=== PATIENT | male | born 1985 | race American Indian/Alaskan Native ===

== ENCOUNTER 2017-10-24 13:10 | Inpatient (IN) | payer OTHER ==
[2017-10-24 16:07] LABS: Basophils % (Auto) 0.3 % (0.0-1.8); Eosinophils % (Auto) 0.1 % (0.0-4.3); Hematocrit 41.5 % (35.5-45.6); Hemoglobin 13.4 gm/dl (11.8-15.2); Lymphocytes % (Auto) 9.9 % (13.4-35.0); Mean Corpuscular HGB Conc 32 % (32-34); Mean Corpuscular Hemoglobin 30 pg (28-32); Mean Corpuscular Volume 92 fl (84-94); Monocytes # (Auto) 0.7 K/mm3 (0.0-0.8); Monocytes % (Auto) 7.1 % (0.0-7.3); Platelet Count 248 K/mm3 (140-440); Red Blood Count 4.51 M/mm3 (3.65-5.03)
[2017-10-24 16:18] LABS: BUN/Creatinine Ratio 30; Blood Urea Nitrogen 24 mg/dL (9-20); Calcium 9.8 mg/dL (8.4-10.2); Hemolysis Index 133
--- NOTE | 2017-10-24 16:26 | Emergency Department Report ---
ED Chest Pain HPI - General Chief Complaint: Chest Pain Stated Complaint: CHEST PAIN Time Seen by Provider: 10/24/17 16:16 Source: EMS Mode of arrival: Stretcher Limitations: Other - History of Present Illness Initial Comments: This is a 32-year-old male who is an inpatient at [facility]. As far as I can tell this patient may have been evaluated at [facility] for chest pain although the triage note states recently seen at [facility]. In either case he may have had a recent evaluation for chest pain. He is essentially mostly catatonic. He doesn't provide any historical information he doesn't tell me his name. He is here with [facility] staff that tells me that he was complaining of chest pain. The triage note states "patient was complaining of chest pain since October 20, and has not been able to tell anyone, patient was recently seen at [facility]. The attendant doesn't really know anything further about this patient. He arrives with limited information from [facility]. Apparently he was put on a sliding scale for insulin but was never given any. It looks like his sugar never exceeded 100. He is on a variety of psychiatric medicine. I do not know anything further about his cardiac history/ medical history other than there are some labs which accompany the patient these appear to be from October 15 326. I do note that the patient had mildly elevated troponins of 0.069 and 0.062 on October 15 and respectively. - Related Data Allergies Allergy/AdvReac Type Severity Reaction Status Date / Time No Known Allergies Allergy Unverified 10/24/17 15:44 Heart Score - HEART Score History: Slightly suspicious EKG: Non-specific Age: < 45 Risk factors: No known risk factors Troponin: < normal limit HEART Score: 1 - Critical Actions Critical Actions: 0-3 pts:0.9-1.7%risk of adverse cardiac event.Candidate for discharge ED Review of Systems ROS: Stated complaint: CHEST PAIN Other details as noted in HPI Comment: Unobtainable due to pts medical conditions ED Past Medical Hx - Past Medical History Additional medical history: Schizophrenia ED Physical Exam - General Limitations: Other General appearance: other (altered) - Head Head exam: Present: atraumatic, normocephalic - Eye Eye exam: Present: conjunctival injection - ENT ENT exam: Present: mucous membranes moist - Neck Neck exam: Present: normal inspection. Absent: tenderness, meningismus - Respiratory Respiratory exam: Present: normal lung sounds bilaterally. Absent: respiratory distress - Cardiovascular Cardiovascular Exam: Present: regular rate, normal rhythm. Absent: systolic murmur, diastolic murmur, rubs, gallop - GI/Abdominal GI/Abdominal exam: Present: soft, normal bowel sounds. Absent: distended, tenderness, guarding, rebound - Rectal Rectal exam: Present: deferred - Extremities Exam Extremities exam: Present: normal inspection, pedal edema. Absent: calf tenderness - Back Exam Back exam: Present: normal inspection - Neurological Exam Neurological exam: Present: CN II-XII intact (as tested well limited exam). Absent: motor sensory deficit (no deficit obvious) - Psychiatric Psychiatric exam: Present: flat affect, other (somewhat catatonic) - Skin Skin exam: Present: warm, dry, intact, normal color. Absent: rash ED Course Vital Signs 10/24/17 18:30 Temperature 100.3 F H Pulse Rate 112 H Respiratory 26 H Rate Blood Pressure 136/72 [Left] O2 Sat by Pulse 95 Oximetry - Reevaluation(s) Reevaluation #1: Patient's initial EKG obtained in the field showed a heart rate of 1:15. On arrival here his next EKG showed sinus tachycardia at 101. On reexamination I found the patient to have a resting heart rate of 110 and a pulse oximetry of 97 %. He did have an S1 every 3 T3 pattern. He did have a d-dimer of greater than 1400. He is also tachycardic. Therefore it seems that pulmonary embolism is a high probability diagnosis in this apparently sedentary/catatonic patient. He was empirically heparinized. A CTA is pending. I discussed this case initially with Dr. Silva on a preliminary basis. He was not involved in the medical decision making. He stated to admit this patient to the night hospitalist. I am not going to bridge him pending his CTA report just in case he does have some massive pulmonary embolism/pulmonary embolism candidate for intervention. I asked Dr. Unger to follow-up on his CTA results. In any case he will be admitted to the hospital for further evaluation. 10/24/17 19:45 ED Medical Decision Making - Lab Data Result diagrams: 10/24/17 15:59 10/24/17 15:59 Laboratory Results - last 24 hr 10/24/17 10/24/17 15:59 15:59 WBC 10.6 RBC 4.51 Hgb 13.4 Hct 41.5 MCV 92 MCH 30 MCHC 32 RDW 15.0 Plt Count 248 Lymph % (Auto) 9.9 L Boundary % (Auto) 7.1 Eos % (Auto) 0.1 Baso % (Auto) 0.3 Lymph # 1.0 L Boundary # 0.7 Eos # 0.0 Baso # 0.0 Seg Neutrophils % 82.6 H Seg Neutrophils # 8.7 H Sodium 137 Chloride 95.7 L Carbon Dioxide 24 BUN 24 H Creatinine 0.8 Estimated GFR > 60 BUN/Creatinine Ratio 30 Glucose 134 H Calcium 9.8 - EKG Data -: EKG Interpreted by La EKG shows normal: sinus rhythm, axis, intervals, QRS complexes, ST-T waves Rate: tachycardia - EKG Data Interpretation: other - Radiology Data Radiology results: report reviewed (chest x-ray showed no acute process) Critical care attestation.: If time is entered above; I have spent that time in minutes in the direct care of this critically ill patient, excluding procedure time. ED Disposition Clinical Impression: Elevated d-dimer, Prerenal azotemia, Hyperkalemia, Schizophrenia, catatonic Chest pain Qualifiers: Chest pain type: unspecified Qualified Code(s): R07.9 - Chest pain, unspecified Disposition: OP ADMIT IP TO THIS HOSP Is pt being admited?: Yes Does the pt Need Aspirin: Yes Condition: Stable Instructions: Chest Pain (ED) Time of Disposition: 19:49
[2017-10-24] MEDS ORDERED: ASPIRIN PO ONE (16:33)
[2017-10-24 16:59] LABS: INR 0.95 (0.87-1.13)
[2017-10-24 17:00] LABS: Partial Thromboplastin Time 28.9 Sec. (24.2-36.6)
--- NOTE | 2017-10-24 17:00 | XRay Report ---
FINAL REPORT EXAM: XR CHEST 1V AP HISTORY: cp TECHNIQUE: upright single view chest PRIORS: None. FINDINGS: Cardiac and mediastinal contours are unremarkable. No focal pulmonary infiltrate is identified. No pleural fluid collection seen. Pulmonary vasculature is unremarkable. IMPRESSION: Negative single-view chest
[2017-10-24 17:05] LABS: Creatine Kinase MB 2.5 ng/mL (0.0-4.0)
[2017-10-24 17:06] LABS: Alanine Aminotransferase 89 units/L (7-56); Albumin 4.4 g/dL (3.9-5); Bilirubin,Direct 0.4 mg/dL (0-0.2)
[2017-10-24] MEDS ORDERED: HEPARIN 10,000 UNITS/10 ML IV ONE (18:57)
[2017-10-24 19:39] LABS: Bilirubin,Urine NEG (Negative); Blood,Urine NEG (Negative); Color,Urine Yellow (Yellow); Mucus,Urine 1+ /HPF
[2017-10-24] MEDS ORDERED: NACL 0.9% 1000 ML 1,000 ML IV ONE (19:43)
[2017-10-24 19:48] LABS: Amphetamine Screen,Urine PRESUMPTIVE NEGATIVE; Benzodiazepines Screen,Urine PRESUMPTIVE NEGATIVE; Cannabinoid Screen,Urine PRESUMPTIVE NEGATIVE; Cocaine Screen,Urine PRESUMPTIVE NEGATIVE; Methadone Screen,Urine PRESUMPTIVE NEGATIVE; Opiate Screen,Urine PRESUMPTIVE NEGATIVE
--- NOTE | 2017-10-24 22:11 | Cat Scan Report ---
FINAL REPORT EXAM: CT ANGIO CHEST HISTORY: cp elevated dimer TECHNIQUE: CT chest CT angiogram with intravenous contrast and maximum intensity and multiplanar reconstruction is PRIORS: None. FINDINGS: There are filling defects present within right lower lobe segmental and subsegmental branches. These appear nonocclusive. There is wedge-shaped right lower lobe pulmonary infiltrate which likely reflects infarct in atelectasis there is a small right pleural effusion present. No evidence of mediastinal pathologic lymph node enlargement Heart and great vessels are unremarkable. The aorta is normal in caliber. No focal pulmonary infiltrate identified. No pleural fluid collection seen. No acute pulmonary abnormality noted. Visualized portion of the upper abdomen demonstrates no acute change. IMPRESSION: Findings are positive for a pulmonary emboli within right lower lobe segmental and subsegmental branches. These are likely acute or subacute. Overall clot burden is small Right lower lobe infiltrate/atelectasis likely reflecting pulmonary infarct Small right pleural effusion
--- NOTE | 2017-10-24 22:12 | Cat Scan Report ---
FINAL REPORT EXAM: CT HEAD/BRAIN WO CON HISTORY: AMS TECHNIQUE: CT head without contrast PRIORS: None. FINDINGS: No acute intra-axial or extra-axial hemorrhage is identified. There is no evidence of midline shift or mass effect. The ventricles and sulci are within normal limits. Forte-white matter differentiation is intact. No acute parenchymal abnormalities seen. Bony calvarium is grossly intact. Visualized portions of the mastoids and paranasal sinuses are unremarkable. IMPRESSION: Negative CT head
[2017-10-24] MEDS ORDERED: SODIUM CHLORIDE FLUSH SYRINGE 10 ML IV PRN (22:58)
[2017-10-24] MEDS ORDERED: TYLENOL PO PRN (22:58)
[2017-10-24] MEDS ORDERED: ZOFRAN IV PRN (22:58)
[2017-10-24] MEDS ORDERED: ROCEPHIN/NS 1 GM/50 ML 1 GM/50 ML BAG IV SCH (23:00)
--- NOTE | 2017-10-24 23:04 | History and Physical Report ---
History of Present Illness Date of examination: 10/24/17 History of present illness: 32- year-old man with a history of schizophrenia cost emergency room complaints of right-sided chest pain. Patient is catatonic, very difficult to get history from him, review of systems is unobtainable PAST MEDICAL HISTORY: Schizophrenia PAST SURGICAL HISTORY: Unknown SOCIAL HISTORY: Unknown FAMILY HISTORY: Unknown Medications and Allergies Allergies Allergy/AdvReac Type Severity Reaction Status Date / Time No Known Allergies Allergy Unverified 10/24/17 15:44 Home Medications Medication Instructions Recorded Confirmed Last Taken Type Apixaban [Eliquis] 5 mg PO BID #60 tablet 10/30/17 Unknown Rx Active Meds: Active Medications Heparin Sodium/Sodium Chloride (Heparin/ 0.45% Nacl-25,000 Unit/500 Ml) 25,000 unit in 500 mls @ 24 mls/hr IV TITR GINGER; Protocol Exam - Physical Exam Narrative exam: Gen. appearance: Patient lying in bed, no apparent distress HEENT: Normocephalic, atraumatic, pupils equally round and reactive to light, extraocular movement intact, and no sclericterus,. No JVD or thyromegaly or nodule,neck supple, no carotid bruit ,mucous membranes moist, no exudate or erythema Heart: S1, S2, regular rate and rhythm Lungs: Difficult to assess Abdomen: Positive bowel sounds, nontender, nondistended, no organomegaly Extremity: No edema, cyanosis, clubbing Skin: No rash, nodules, warm, dry Neuro: lethargic but arousable - Constitutional Vitals: Temp Pulse Resp BP Pulse Ox 100.3 F H 105 H 31 H 146/69 96 10/24/17 18:30 10/24/17 22:30 10/24/17 22:30 10/24/17 22:30 10/24/17 22:30 Results - Labs CBC & Chem 7: 10/30/17 05:33 10/27/17 07:57 Labs: Abnormal lab results 10/24/17 10/24/17 10/24/17 Range/Units 15:59 15:59 16:40 Lymph % (Auto) 9.9 L (13.4-35.0) % Lymph # 1.0 L (1.2-5.4) K/mm3 Seg Neutrophils % 82.6 H (40.0-70.0) % Seg Neutrophils # 8.7 H (1.8-7.7) K/mm3 D-Dimer (0-234) ng/mlDDU Potassium 5.1 H (3.6-5.0) mmol/L Chloride 95.7 L (98-107) mmol/L BUN 24 H (9-20) mg/dL Glucose 134 H (75-100) mg/dL Direct Bilirubin (0-0.2) mg/dL AST (5-40) units/L ALT (7-56) units/L Total Creatine Kinase 589 H (55-170) units/L 10/24/17 10/24/17 Range/Units 16:40 16:40 Lymph % (Auto) (13.4-35.0) % Lymph # (1.2-5.4) K/mm3 Seg Neutrophils % (40.0-70.0) % Seg Neutrophils # (1.8-7.7) K/mm3 D-Dimer 1408.23 H (0-234) ng/mlDDU Potassium (3.6-5.0) mmol/L Chloride (98-107) mmol/L BUN (9-20) mg/dL Glucose (75-100) mg/dL Direct Bilirubin 0.4 H (0-0.2) mg/dL AST 83 H (5-40) units/L ALT 89 H (7-56) units/L Total Creatine Kinase (55-170) units/L - Imaging and Cardiology EKG: image reviewed Chest x-ray: image reviewed CT scan - chest: report reviewed CT Scan - head: report reviewed Assessment and Plan Assessment Pulmonary emboli Community-acquired pneumonia schizophrenia Plan Admit to medicine Start heparin drip, monitor hemoglobin Start IV Rocephin, azithromycin Follow blood cultures, check Doppler lower extremity DVT prophylaxis
[2017-10-24] MEDS: cefTRIAXone 1 GM in NACL 0.9% 20 ML IV SCH (23:55)
[2017-10-25] MEDS: HEPARIN/ 0.45% NACL-25,000 UNIT/500 ML 25,000 UNIT/500 ML BAG IV SCH ×2 (00:18→22:05)
[2017-10-25] MEDS: ZITHROMAX 500 MG in NACL 0.9% 250ML 250 ML IV SCH (04:50)
[2017-10-25 06:08] LABS: Basophils % (Auto) 0.5 % (0.0-1.8); Eosinophils % (Auto) 0.4 % (0.0-4.3); Lymphocytes # (Auto) 1.7 K/mm3 (1.2-5.4); Lymphocytes % (Auto) 20.8 % (13.4-35.0); Mean Corpuscular HGB Conc 33 % (32-34); Mean Corpuscular Hemoglobin 30 pg (28-32); Mean Corpuscular Volume 91 fl (84-94); Monocytes # (Auto) 0.7 K/mm3 (0.0-0.8); Monocytes % (Auto) 8.9 % (0.0-7.3); Platelet Count 247 K/mm3 (140-440); Red Blood Count 3.96 M/mm3 (3.65-5.03); Red Cell Distribution Width 14.7 % (13.2-15.2)
[2017-10-25 06:31] LABS: BUN/Creatinine Ratio 29; Blood Urea Nitrogen 23 mg/dL (9-20); Calcium 9.4 mg/dL (8.4-10.2); Hemolysis Index 0
[2017-10-25] MEDS: SODIUM CHLORIDE FLUSH SYRINGE 10 ML IV SCH ×2 (14:19→22:04)
--- NOTE | 2017-10-25 17:15 | Progress Note ---
Assessment and Plan - Patient Problems (1) Schizophrenia, catatonic Current Visit: Yes Status: Acute Plan to address problem: Still catatonic.Not talking.Quite.Making ete contact (2) Pulmonary embolism Current Visit: Yes Status: Acute Qualifiers: Chronicity: acute Acute cor pulmonale presence: without acute cor pulmonale Plan to address problem: Cont Heparin (3) DVT prophylaxis Current Visit: Yes Status: Acute Plan to address problem: On Heparin drip Subjective Date of service: 10/25/17 Principal diagnosis: Acute PE/Catatonic schizophrenia Interval history: Still in catatonic state Objective - Constitutional Vitals: Vital Signs - 12hr 10/25/17 10/25/17 10/25/17 07:52 10:00 12:13 Temperature 98.8 F 98.5 F Pulse Rate 74 84 Respiratory 20 16 20 Rate Blood Pressure 129/64 133/75 O2 Sat by Pulse 96 98 98 Oximetry 10/25/17 10/25/17 16:42 17:02 Temperature 98.9 F Pulse Rate 98 H Respiratory 18 Rate Blood Pressure 137/76 O2 Sat by Pulse 95 93 Oximetry General appearance: Present: no acute distress, well-nourished - EENT Eyes: PERRL, EOM intact ENT: hearing intact, clear oral mucosa Ears: bilateral: normal - Neck Neck: supple, normal ROM - Respiratory Respiratory effort: normal Respiratory: bilateral: CTA - Breasts Breasts: normal - Cardiovascular Heart rate: 80 Rhythm: regular Heart Sounds: Present: S1 & S2. Absent: gallop, rub Extremities: no ischemia, pulses intact, No edema, normal color, Full ROM - Gastrointestinal General gastrointestinal: Present: soft, non-tender, non-distended, normal bowel sounds Rectal Exam: deferred - Genitourinary Male genitourinary: normal - Integumentary Integumentary: clear, warm, dry - Musculoskeletal Musculoskeletal: 1, strength equal bilaterally - Neurologic Neurologic: moves all extremities - Psychiatric Psychiatric: memory intact, appropriate mood/affect, intact judgment & insight - Labs CBC & Chem 7: 18 05:33 10/27/17 07:57 Labs: Abnormal lab results 10/25/17 10/25/17 10/25/17 Range/Units 04:33 04:33 06:15 Carson % (Auto) 8.9 H (0.0-7.3) % Heparin Anti-Xa Level 0.12 L (0.3-0.7) U.I./ml BUN 23 H (9-20) mg/dL Glucose 108 H (75-100) mg/dL
--- NOTE | 2017-10-25 17:48 | Vascular Lab Report ---
LOWER EXTREMITY VENOUS DUPLEX: REASON FOR EXAM: Deep venous thrombosis. COMMENTS ON THE RIGHT: All veins visualized are freely compressible without evidence of internal echogenicity. Flow is spontaneous and phasic throughout. COMMENTS ON THE LEFT: All veins visualized are freely compressible without evidence of internal echogenicity. Flow is spontaneous and phasic throughout. IMPRESSION: No evidence of acute or chronic deep venous thrombosis in either lower extremity.
[2017-10-25] MEDS: cefTRIAXone 1 GM in NACL 0.9% 20 ML IV SCH (22:03)
[2017-10-26] MEDS: HEPARIN/ 0.45% NACL-25,000 UNIT/500 ML 25,000 UNIT/500 ML BAG IV SCH (00:03)
[2017-10-26] MEDS: ZITHROMAX 500 MG in NACL 0.9% 250ML 250 ML IV SCH (03:26)
[2017-10-26 08:07] LABS: Hemoglobin 11.7 gm/dl (11.8-15.2)
[2017-10-26] MEDS: SODIUM CHLORIDE FLUSH SYRINGE 10 ML IV SCH ×2 (12:21→22:28)
--- NOTE | 2017-10-26 17:56 | Progress Note ---
Assessment and Plan - Patient Problems (1) Pulmonary embolism Current Visit: Yes Status: Acute Qualifiers: Chronicity: acute Acute cor pulmonale presence: without acute cor pulmonale Plan to address problem: Cont IV Heparin. consult pending (2) Schizophrenia, catatonic Current Visit: Yes Status: Acute Plan to address problem: Improved (3) Pneumonia Current Visit: Yes Status: Acute Qualifiers: Pneumonia type: due to unspecified organism Lung location: unspecified part of lung Plan to address problem: Cont Abx (4) DVT prophylaxis Current Visit: Yes Status: Acute Plan to address problem: On IV Heparin Subjective Date of service: 10/26/17 Principal diagnosis: Acute PE PNA and Catatonic state Interval history: Catatonic state improved Objective - Constitutional Vitals: Vital Signs - 12hr 10/26/17 10/26/17 10/26/17 08:00 08:27 09:50 Temperature 98.5 F Pulse Rate 101 H 92 H Respiratory 8 L Rate Blood Pressure 136/79 O2 Sat by Pulse 97 97 Oximetry 10/26/17 10/26/17 10/26/17 12:03 16:00 16:03 Temperature 98.5 F 98.2 F Pulse Rate 105 H 109 H 88 Respiratory 18 18 Rate Blood Pressure 154/84 143/81 O2 Sat by Pulse 97 96 Oximetry General appearance: Present: no acute distress, well-nourished - EENT Eyes: PERRL, EOM intact ENT: hearing intact, clear oral mucosa Ears: bilateral: normal - Neck Neck: supple, normal ROM - Respiratory Respiratory effort: normal Respiratory: bilateral: CTA - Breasts Breasts: normal - Cardiovascular Heart rate: 76 Rhythm: regular Heart Sounds: Present: S1 & S2. Absent: gallop, rub Extremities: no ischemia, pulses intact, No edema, normal color, Full ROM - Gastrointestinal General gastrointestinal: Present: soft, non-tender, non-distended, normal bowel sounds - Genitourinary Male genitourinary: normal - Integumentary Integumentary: clear, warm, dry - Musculoskeletal Musculoskeletal: 1, strength equal bilaterally - Neurologic Neurologic: moves all extremities - Psychiatric Psychiatric: memory intact, appropriate mood/affect, intact judgment & insight - Allied health notes Allied health notes reviewed: nursing, case management - Labs CBC & Chem 7: 10/30/17 05:33 10/27/17 07:57 Labs: Abnormal lab results 10/25/17 10/26/17 10/26/17 Range/Units 23:18 07:40 07:40 Hgb 11.7 L (11.8-15.2) gm/dl Hct 35.0 L (35.5-45.6) % Heparin Anti-Xa Level 0.13 L > 2.00 H (0.3-0.7) U.I./ml 10/26/17 Range/Units 17:02 Hgb (11.8-15.2) gm/dl Hct (35.5-45.6) % Heparin Anti-Xa Level < 0.10 L (0.3-0.7) U.I./ml
[2017-10-26] MEDS: cefTRIAXone 1 GM in NACL 0.9% 20 ML IV SCH (22:27)
[2017-10-27] MEDS ORDERED: HEPARIN 10,000 UNITS/10 ML IV ONE (03:44)
[2017-10-27] MEDS: HEPARIN/ 0.45% NACL-25,000 UNIT/500 ML 25,000 UNIT/500 ML BAG IV SCH (04:20)
[2017-10-27 08:30] LABS: Basophils # (Auto) 0.1 K/mm3 (0.0-0.1); Basophils % (Auto) 0.7 % (0.0-1.8); Eosinophils # (Auto) 0.1 K/mm3 (0.0-0.4); Eosinophils % (Auto) 1.5 % (0.0-4.3); Hematocrit 35.9 % (35.5-45.6); Hemoglobin 12.1 gm/dl (11.8-15.2); Lymphocytes # (Auto) 1.7 K/mm3 (1.2-5.4); Lymphocytes % (Auto) 24.4 % (13.4-35.0); Mean Corpuscular HGB Conc 34 % (32-34); Mean Corpuscular Hemoglobin 30 pg (28-32); Mean Corpuscular Volume 90 fl (84-94); Monocytes # (Auto) 0.6 K/mm3 (0.0-0.8); Monocytes % (Auto) 8.3 % (0.0-7.3); Platelet Count 287 K/mm3 (140-440); Red Cell Distribution Width 14.4 % (13.2-15.2)
[2017-10-27 08:42] LABS: BUN/Creatinine Ratio 24; Blood Urea Nitrogen 17 mg/dL (9-20); Calcium 9.8 mg/dL (8.4-10.2); Hemolysis Index 7
[2017-10-27] MEDS: SODIUM CHLORIDE FLUSH SYRINGE 10 ML IV SCH ×2 (10:53→22:42)
[2017-10-27] MEDS: ZITHROMAX PO SCH (13:43)
--- NOTE | 2017-10-27 16:19 | Progress Note ---
Assessment and Plan - Patient Problems (1) Pulmonary embolism Current Visit: Yes Status: Acute Qualifiers: Chronicity: acute Acute cor pulmonale presence: without acute cor pulmonale Plan to address problem: Cont Heparin.Chayo from tomorrow consult pending (2) Schizophrenia, catatonic Current Visit: Yes Status: Acute Plan to address problem: Improved (3) Pneumonia Current Visit: Yes Status: Acute Qualifiers: Pneumonia type: due to unspecified organism Lung location: unspecified part of lung Plan to address problem: Cont Abx (4) DVT prophylaxis Current Visit: Yes Status: Acute Plan to address problem: On IV Heparin Subjective Date of service: 10/27/17 Principal diagnosis: Acute PE /PNA /Catatonic state Interval history: Catatonic state improved Objective - Constitutional Vitals: Vital Signs - 12hr 10/27/17 10/27/17 10/27/17 07:05 13:14 16:09 Temperature 99.4 F 99.3 F Pulse Rate 85 93 H Respiratory 18 20 Rate Blood Pressure 138/76 Blood Pressure 141/84 [Left] O2 Sat by Pulse 95 96 Oximetry 10/27/17 16:10 Temperature Pulse Rate 92 H Respiratory 20 Rate Blood Pressure Blood Pressure 145/89 [Left] O2 Sat by Pulse 96 Oximetry General appearance: Present: no acute distress, well-nourished - EENT Eyes: PERRL, EOM intact ENT: hearing intact, clear oral mucosa Ears: bilateral: normal - Neck Neck: supple, normal ROM - Respiratory Respiratory effort: normal Respiratory: bilateral: CTA - Breasts Breasts: normal - Cardiovascular Heart rate: 76 Rhythm: regular Heart Sounds: Present: S1 & S2. Absent: gallop, rub Extremities: no ischemia, pulses intact, No edema, normal color, Full ROM - Gastrointestinal General gastrointestinal: Present: soft, non-tender, non-distended, normal bowel sounds - Genitourinary Male genitourinary: normal - Integumentary Integumentary: clear, warm, dry - Musculoskeletal Musculoskeletal: 1, strength equal bilaterally - Neurologic Neurologic: moves all extremities - Psychiatric Psychiatric: memory intact, appropriate mood/affect, intact judgment & insight - Allied health notes Allied health notes reviewed: nursing, case management - Labs CBC & Chem 7: 10/30/17 05:33 10/27/17 07:57 Labs: Abnormal lab results 10/26/17 10/27/17 10/27/17 Range/Units 17:02 00:39 07:57 [place]er % (Auto) 8.3 H (0.0-7.3) % Heparin Anti-Xa Level < 0.10 L < 0.10 L (0.3-0.7) U.I./ml Creatinine (0.8-1.5) mg/dL Glucose (75-100) mg/dL 10/27/17 Range/Units 07:57 Towner % (Auto) (0.0-7.3) % Heparin Anti-Xa Level (0.3-0.7) U.I./ml Creatinine 0.7 L (0.8-1.5) mg/dL Glucose 110 H (75-100) mg/dL
[2017-10-27] MEDS: cefTRIAXone 1 GM in NACL 0.9% 20 ML IV SCH (22:41)
[2017-10-28] MEDS: HEPARIN/ 0.45% NACL-25,000 UNIT/500 ML 25,000 UNIT/500 ML BAG IV SCH ×2 (03:57→16:38)
[2017-10-28 07:08] LABS: Hematocrit 38.8 % (35.5-45.6); Hemoglobin 12.2 gm/dl (11.8-15.2)
[2017-10-28] MEDS: SODIUM CHLORIDE FLUSH SYRINGE 10 ML IV SCH ×2 (10:43→22:45)
[2017-10-28] MEDS: ZITHROMAX PO SCH (10:43)
--- NOTE | 2017-10-28 20:20 | Progress Note ---
Assessment and Plan - Patient Problems (1) Pulmonary embolism Current Visit: Yes Status: Acute Qualifiers: Chronicity: acute Acute cor pulmonale presence: without acute cor pulmonale Plan to address problem: Heparin d/c'd today.On Eliquis 10mg po bid.Patient to be discharged on Eliquis 10 mg po bid till November 05 and then on 5mg po Bid for atleast 9 to 12 months (2) Schizophrenia, catatonic Current Visit: Yes Status: Acute Plan to address problem: Improved (3) Pneumonia Current Visit: Yes Status: Acute Qualifiers: Pneumonia type: due to unspecified organism Lung location: unspecified part of lung Plan to address problem: Cont Abx (4) DVT prophylaxis Current Visit: Yes Status: Acute Plan to address problem: On Eliquis Subjective Date of service: 10/28/17 Principal diagnosis: Acute PE/PNA/Catatonic state Interval history: Catatonic state improved Objective - Constitutional Vitals: Vital Signs - 12hr 10/28/17 10/28/17 10/28/17 11:59 12:00 15:55 Temperature 98.8 F 98.6 F Pulse Rate 100 H 95 H 97 H Respiratory 20 20 Rate Blood Pressure 151/87 145/83 O2 Sat by Pulse 96 93 Oximetry General appearance: Present: no acute distress, well-nourished - EENT Eyes: PERRL, EOM intact ENT: hearing intact, clear oral mucosa Ears: bilateral: normal - Neck Neck: supple, normal ROM - Respiratory Respiratory effort: normal Respiratory: bilateral: CTA - Breasts Breasts: normal - Cardiovascular Heart rate: 78 Rhythm: regular Heart Sounds: Present: S1 & S2. Absent: gallop, rub Extremities: no ischemia, pulses intact, No edema, normal color, Full ROM - Gastrointestinal General gastrointestinal: Present: soft, non-tender, non-distended, normal bowel sounds - Genitourinary Male genitourinary: normal - Integumentary Integumentary: clear, warm, dry - Musculoskeletal Musculoskeletal: 1, strength equal bilaterally - Neurologic Neurologic: moves all extremities - Psychiatric Psychiatric: memory intact, appropriate mood/affect, intact judgment & insight - Labs CBC & Chem 7: 10/30/17 05:33 10/27/17 07:57 Labs: Abnormal lab results 10/28/17 Range/Units 06:16 Heparin Anti-Xa Level 0.14 L (0.3-0.7) U.I./ml
[2017-10-28] MEDS: cefTRIAXone 1 GM in NACL 0.9% 20 ML IV SCH (22:44)
[2017-10-29] MEDS: HEPARIN/ 0.45% NACL-25,000 UNIT/500 ML 25,000 UNIT/500 ML BAG IV SCH (06:06)
[2017-10-29] MEDS: ZITHROMAX PO SCH (11:22)
[2017-10-29] MEDS: SODIUM CHLORIDE FLUSH SYRINGE 10 ML IV SCH ×2 (11:23→22:21)
--- NOTE | 2017-10-29 14:06 | Progress Note ---
Assessment and Plan - Patient Problems (1) Pulmonary embolism Current Visit: Yes Status: Acute Qualifiers: Chronicity: acute Acute cor pulmonale presence: without acute cor pulmonale Plan to address problem: Heparin d/c'd .On Eliquis 10mg po bid.Patient to be discharged on Eliquis 10 mg po bid till November 05 and then on 5mg po Bid for atleast 9 to 12 months (2) Schizophrenia, catatonic Current Visit: Yes Status: Acute Plan to address problem: Improved (3) Pneumonia Current Visit: Yes Status: Acute Qualifiers: Pneumonia type: due to unspecified organism Lung location: unspecified part of lung Plan to address problem: Cont Abx (4) DVT prophylaxis Current Visit: Yes Status: Acute Plan to address problem: On Eliquis Subjective Date of service: 10/29/17 Principal diagnosis: Acute PE Schizophrenia and Pneumonia Interval history: Catatonic state improved Objective - Constitutional Vitals: Vital Signs - 12hr 10/29/17 10/29/17 10/29/17 04:36 08:26 12:00 Temperature 99.4 F 98.0 F 98.4 F Pulse Rate 100 H 93 H 101 H Respiratory 20 20 20 Rate Blood Pressure 133/89 130/69 139/70 O2 Sat by Pulse 95 94 92 Oximetry General appearance: Present: no acute distress, well-nourished - EENT Eyes: PERRL, EOM intact ENT: hearing intact, clear oral mucosa Ears: bilateral: normal - Neck Neck: supple, normal ROM - Respiratory Respiratory effort: normal Respiratory: bilateral: CTA - Breasts Breasts: normal - Cardiovascular Heart rate: 80 Rhythm: regular Heart Sounds: Present: S1 & S2. Absent: gallop, rub Extremities: no ischemia, pulses intact, No edema, normal color, Full ROM - Gastrointestinal General gastrointestinal: Present: soft, non-tender, non-distended, normal bowel sounds - Genitourinary Male genitourinary: normal - Integumentary Integumentary: clear, warm, dry - Musculoskeletal Musculoskeletal: 1, strength equal bilaterally - Neurologic Neurologic: moves all extremities - Psychiatric Psychiatric: memory intact, appropriate mood/affect, intact judgment & insight - Labs CBC & Chem 7: 10/30/17 05:33 10/27/17 07:57
--- NOTE | 2017-10-29 14:30 | Event Note ---
Date: 10/29/17 Patient is stable for discharge if mental health clearance. Patient on Eliquis Can be discharged on Eliquis Mental health can call me at [phone] to discuss the case with me Dr. Elena
[2017-10-29] MEDS: ELIQUIS PO SCH ×2 (19:30→22:22)
[2017-10-29] MEDS: cefTRIAXone 1 GM in NACL 0.9% 20 ML IV SCH (22:21)
[2017-10-30 05:50] LABS: Hematocrit 39.5 % (35.5-45.6); Hemoglobin 13.2 gm/dl (11.8-15.2)
[2017-10-30] MEDS: ELIQUIS PO SCH ×2 (12:02→21:52)
[2017-10-30] MEDS: ZITHROMAX PO SCH (12:02)
[2017-10-30] MEDS: SODIUM CHLORIDE FLUSH SYRINGE 10 ML IV SCH ×2 (12:03→21:58)
--- NOTE | 2017-10-30 16:41 | Progress Note ---
Assessment and Plan - Patient Problems (1) Pulmonary embolism Current Visit: Yes Status: Acute Qualifiers: Chronicity: acute Acute cor pulmonale presence: without acute cor pulmonale Plan to address problem: Heparin d/c'd .On Eliquis 10mg po bid.Patient to be discharged on Eliquis 10 mg po bid till November 05 and then on 5mg po Bid for atleast 9 to 12 months (2) Schizophrenia, catatonic Current Visit: Yes Status: Acute Plan to address problem: Improved.Near baseline. (3) Pneumonia Current Visit: Yes Status: Acute Qualifiers: Pneumonia type: due to unspecified organism Lung location: unspecified part of lung Plan to address problem: Antibiocs being d/c'd (4) DVT prophylaxis Current Visit: Yes Status: Acute Plan to address problem: On Eliquis (5) Discharge planning issues Current Visit: Yes Status: Acute Plan to address problem: Patient cleared by to go back to nursing home today. Father to pick him up in AM Subjective Date of service: 10/30/17 Principal diagnosis: Acute PE Catatonic state schizophrenia Pneumonia Interval history: Catatonic state improved Objective - Constitutional Vitals: Vital Signs - 12hr 10/30/17 10/30/17 08:54 12:27 Temperature 98.6 F 98.6 F Pulse Rate 79 Respiratory 20 20 Rate Blood Pressure 127/68 149/86 O2 Sat by Pulse 95 Oximetry General appearance: Present: no acute distress, well-nourished - EENT Eyes: PERRL, EOM intact ENT: hearing intact, clear oral mucosa Ears: bilateral: normal - Neck Neck: supple, normal ROM - Respiratory Respiratory effort: normal Respiratory: bilateral: CTA - Breasts Breasts: normal - Cardiovascular Heart rate: 78 Rhythm: regular Heart Sounds: Present: S1 & S2. Absent: gallop, rub Extremities: no ischemia, pulses intact, pulses symmetrical, No edema, normal color, Full ROM - Gastrointestinal General gastrointestinal: Present: soft, non-tender, non-distended, normal bowel sounds Rectal Exam: deferred - Genitourinary Male genitourinary: normal - Integumentary Integumentary: clear, warm, dry - Musculoskeletal Musculoskeletal: 1, strength equal bilaterally - Neurologic Neurologic: moves all extremities - Psychiatric Psychiatric: memory intact, appropriate mood/affect, intact judgment & insight - Allied health notes Allied health notes reviewed: nursing, case management - Labs CBC & Chem 7: 10/30/17 05:33 10/27/17 07:57
--- NOTE | 2017-10-30 16:42 | Discharge Summary ---
Providers - Providers Date of Admission: 10/24/17 22:58 Date of discharge: 10/31/17 Attending physician: JOSÉ SCOTT 10/30/17 09:45 Consult to Mental Health [CONS] Urgent Reason For Exam: Patient from [facility], medically stable Place consult to:: Mental Health Notified:: Colette Phone number called:: [phone] Was contact made?: Yes If yes, spoke with:: Colette Primary care physician: CARLENE THOMASON Hospitalization Condition: Stable Hospital course: The SW spoke to the PT's father regarding the Pt's d/c plan. The Pt's father states the Pt is coming from [facility] and will return to [facility] when medical stable. The PT has been a resident a critical access hospital for 2.5 years. The SW spoke to [facility] at [phone] option 2 regarding the return to [address] [place] [id number] at d/c. The SW is requested to fax over the d/c paperwork [phone] NOK: The PT's father [phone] D/C: The PT will be d/c back to [facility] Initialized on 10/30/17 15:36 - END OF NOTE consult on 10/30/17 Pt is a 32 yo AA male; he was seen today and appears stable mentally. He reports a history of schizophrenia of which he's prescribed Depakote; he reports that he's compliant with his meds. According to all reports, pt was transferred to [facility] on October 20 due to Catatonia; pt reports that he'd had a bad reaction to Prazosin that Dr. Gamble at [facility] had prescribed for him. This pt presented in the ER in a Catatonic state; today, he is lucid. Pt does report weakness in his legs and that he has not been able to go to the restroom on his own and he's not sure if he can bath himself but he denies SI, HI and the voices are not active currently. Pt does not meet IP criteria and should not be on a 1013; he can discharge once medically cleared. SDM Patient had Acute PE for wqhich he was on Heparin IV and now on Eliquis 10 bid till and then on 5 bid Also had Pneumonia which was treated.Abx discontinued today Catatonic schizophrenia improved Disposition: [id number] ANOTHER TYPE [facility]ARE Core Measure Documentation - Palliative Care Palliative Care/ Comfort Measures: Not Applicable - Core Measures Any of the following diagnoses?: none Exam - Constitutional Vitals: Temp Pulse Resp BP Pulse Ox 98.6 F 79 20 149/86 95 10/30/17 12:27 10/30/17 08:54 10/30/17 12:27 10/30/17 12:27 10/30/17 08:54 General appearance: Present: no acute distress, well-nourished - EENT Eyes: Present: PERRL ENT: hearing intact, clear oral mucosa - Neck Neck: Present: supple, normal ROM - Respiratory Respiratory effort: normal Respiratory: bilateral: CTA - Cardiovascular Heart rate: 80 Rhythm: regular Heart Sounds: Present: S1 & S2. Absent: rub, click - Extremities Extremities: pulses symmetrical, No edema Peripheral Pulses: within normal limits - Abdominal General gastrointestinal: Present: soft, non-tender, non-distended, normal bowel sounds Male genitourinary: Present: normal - Rectal Rectal Exam: deferred - Integumentary Integumentary: Present: clear, warm, dry - Musculoskeletal Musculoskeletal: gait normal, strength equal bilaterally - Psychiatric Psychiatric: appropriate mood/affect, intact judgment & insight - Neurologic Neurologic: CNII-XII intact, moves all extremities - Allied Health Allied health notes reviewed: nursing, case management Plan Activity: no restrictions Diet: regular Follow up with: CARLENE THOMASON MD [Primary Care Provider] - 7 Days Prescriptions: Apixaban [Eliquis] 5 mg PO BID #60 tablet
[2017-10-30] MEDS: cefTRIAXone 1 GM in NACL 0.9% 20 ML IV SCH (21:52)
[2017-10-31] MEDS: ZITHROMAX PO SCH (10:18)
[2017-10-31] MEDS: ELIQUIS PO SCH (10:18)
[2017-10-31] MEDS: SODIUM CHLORIDE FLUSH SYRINGE 10 ML IV SCH (10:18)
[2017-10-31 14:06] VITALS: BP 139/88
--- NOTE | 2017-11-01 07:46 | Fluoroscopy Report ---
MODIFIED BARIUM SWALLOW INDICATION: Dysphagia. COMPARISON: None similar. FINDINGS: Fluoroscopy with video provided by radiologist for speech therapist to assess the swallowing mechanism. Food items of various consistencies given. One image recorded. IMPRESSION: Successful modified barium swallow. Please refer to detailed report from speech pathologist. Please note that this exam is now available to me for interpretation. Thank you for the opportunity to participate in this patient's care.
[2017-11-05] MEDS ORDERED: ELIQUIS PO SCH (10:00)
== END 2017-10-31 15:10 | disposition short-term general hospital (02) | DRG 175 ==
LOC: ED 13:10 → 4A 22:58
PROVIDERS: ADMIT Internal Medicine; ATTEND Family Medicine
DX: I26.99 Other pulmonary embolism without acute cor pulmonale (principal); J18.9 Pneumonia, unspecified organism; F20.2 Catatonic schizophrenia; E87.5 Hyperkalemia
CPT/HCPCS: 36415; 70450; 71045; 71275; 74230; 80048; 80074; 80307; 81001; 82550; 82553; 82962; 83880; 84484; 85014; 85018; 85025; 85049; 85379; 85520; 85610; 85730; 87040; 93005; 93010; 93970; 96361; 96365; 96366; 96367; 96376; J0456; J0696; J1644; J7030; J7050; Q9967